=== PATIENT | female | born 1955 | race Hispanic/Latino ===

== ENCOUNTER 2025-11-16 01:10 | Emergency (ER) | payer SELFPAY ==
[2025-11-16 02:08] LABS: #Basophils 0.04 10x3/uL (0.0-0.2); #Eosinophils 0.09 10x3/uL (0.0-0.7); #Monocytes 0.59 10x3/uL (0.11-0.59); #Neutrophils 4.42 10x3/uL (1.40-6.50); %Basophils 0.6 % (0.0-1.0); %Eosinophils 1.3 % (0.0-10.0); %Lymphocytes 27.4 % (21.0-51.0); %Monocytes 8.3 % (0.0-10.0); %Neutrophils 62.3 % (42.0-75.0); Hematocrit 38.5 % (36.0-47.0); Hemoglobin 12.6 g/dL (12.0-16.0); Mean Corpuscular Hemoglobin 29.3 pg (27.0-31.0); Mean Corpuscular Volume 89.5 fL (78.0-98.0); Platelet Count 336 10x3/uL (130-400); Red Blood Cell (RBC) Count 4.30 mill/uL (4.20-5.40); White Blood Cell (WBC) Count 7.09 10x3/uL (4.8-10.8)
[2025-11-16 02:24] LABS: ALT (SGPT) 14 U/L (Less than 34); AST (SGOT) 23 U/L (11-34); Albumin 3.6 g/dL (3.1-4.5); Alkaline Phosphatase 94 U/L (40-110); Anion Gap 13 mmol/L (10-20); BUN (Urea Nitrogen) 29 mg/dL (9.8-20.1); Bilirubin, Total 0.2 mg/dL (0.3-1.2); Calc. Creatinine Clearance 0 mL/min (70-130); Calcium 9.3 mg/dL (7.8-10.44); Carbon Dioxide 24 mmol/L (23-31); Chloride 108 mmol/L (98-107); Globulin 3.5 g/dL (2.4-3.5); Glucose 117 mg/dL (83-110); Potassium 3.4 mmol/L (3.5-5.1); Sodium 142 mmol/L (136-145)
[2025-11-16] MEDS ORDERED: Lidocaine/Transparent Dressing 1 EACH KIT ONE (02:43)
[2025-11-16] MEDS ORDERED: Bacitracin 1 PK ONE (03:11)
[2025-11-16] MEDS ORDERED: Ondansetron PF 4 MG/2 ML Vial ONE (04:25)
== END 2025-11-16 05:52 | disposition home or self-care (01) ==
LOC: ERS 01:10
DX: T24.211A Burn of second degree of right thigh, initial encounter (principal); X11.8XXA Contact with other hot tap-water, initial encounter; Z23 Encounter for immunization
CPT/HCPCS: 80053; 83605; 85025; 87040; 87070; 87205; 90471; 90715; 93005; 94760; 96374; 96375; J2405; J3010